=== PATIENT | female | born 1950 | race Caucasian/White ===

== ENCOUNTER → 2016-05-20 | Outpatient (CLI) | payer OTHER, MEDICARE ==
--- NOTE | 2016-05-20 15:31 | MA ---
Diagnostic Digital Mammogram With iCAD Analysis Clinical Indications: Evaluate palpable area in the upper-outer left breast detected by the patient's healthcare care provider. Technique: Standard cephalocaudal and mediolateral oblique projections were obtained. Additionally, o blique and craniocaudal spot compressions as well as a true lateral view of the left breast were perf ormed with attention to the region where the palpable abnormality was reported. This examination was processed by the iCAD computer-aided detection system. Comparison: October 2014, October 2013, April 2012, July 2010, March 2009, March 2008, October 2006. Breast density: Type C; Heterogeneously dense. Findings: CAD was reviewed. Prominent heterogeneous glandular pattern is stable bilaterally. No spic ulated masses, suspicious calcifications or other signs of malignancy are identified. There has been no significant change in the appearance of either breast. Impression: Palpable left breast region requires further evaluation. BI-RADS 0 Recommendation: Targeted left breast ultrasound which will be subsequently performed today. [facility] will send a result letter to the patient. A verbal report was given to the patient. Dense breast parenchyma diminishes mammographic sensitivity. Negative mammography should not preclude additional workup of a clinically suspicious finding. The patient's information is entered into a reminder system with a target due date for her next mammo gram.
--- NOTE | 2016-05-20 15:50 | US ---
Left Breast Ultrasound History: Evaluate palpable asymmetry identified by the patient's healthcare provider in the upper out er left breast. Technique: Longitudinal and transverse images were obtained utilizing a 15 MHz transducer. Study is interpreted in conjunction with diagnostic mammography performed earlier today. Findings: No discrete palpable abnormality is identified on my physical examination. Sonographic inte rrogation of the upper outer left breast demonstrates prominent fibroglandular elements. No solid or cystic mass is seen. Impression: Benign findings when considering mammographic and sonographic assessment, BI-RADS 2. Recommendation: Resume routine mammographic screening in one year as long as physical examination is negative.. A verbal report was given to the patient. [facility] will send a result letter to the patient.
== END ==
LOC: FIMAGING 14:32
PROVIDERS: ATTEND Internal Medicine Hematology & Oncology
DX: N63 Unspecified lump in breast (principal)
CPT/HCPCS: 76641; G0204

== ENCOUNTER → 2017-09-17 | Outpatient (CLI) | payer OTHER, MEDICARE ==
[~2017-09-17] MED LIST: LIDOCAINE 1% 300 MG/30 ML SDV ONE
--- NOTE | 2017-09-17 09:09 | PDRADPN ---
Radiology Procedure Note Date of Procedure: 09/17/17 Radiologist: Edilberto Archibald Anesthesia: Local (Specify) Pre-op Diagnosis: left submandibular nodule Post-op Diagnosis: same Indication: diagnosis Procedure: FNA under US guidance Finding(s): heterogeneous, very superficial nodule in left submandibular region with rim vascularity. Six 25G FNAs. Inf/Abcess present in the surg proc area at time of surgery?: No EBL: Minimal Complications: none Specimen(s): 6 FNAS submitted
== END ==
LOC: FIMAGING 07:42
PROVIDERS: ATTEND Internal Medicine Hematology & Oncology
PROC: 0C9 Mouth and Throat, Drainage (ICD-10-PCS; principal; 2017-09-17)
DX: M27.9 Disease of jaws, unspecified (principal)

== ENCOUNTER → 2018-09-06 | Outpatient (CLI) | payer OTHER, MEDICARE | LOC: BMCIMAGING 10:22 | PROVIDERS: ATTEND Emergency Medicine | DX: S52.502A Unspecified fracture of the lower end of left radius, initial encounter for closed fracture (principal); S52.612A Displaced fracture of left ulna styloid process, initial encounter for closed fracture ==

== ENCOUNTER → 2018-09-15 | Outpatient (CLI) | payer OTHER, MEDICARE | LOC: FIMAGING 11:34 | PROVIDERS: ATTEND Internal Medicine | DX: Z12.31 Encounter for screening mammogram for malignant neoplasm of breast (principal) ==

== ENCOUNTER → 2018-09-25 | Outpatient (CLI) | payer OTHER, MEDICARE | LOC: BMCIMAGING 12:45 ==

== ENCOUNTER → 2018-10-06 | Outpatient (CLI) | payer OTHER, MEDICARE | LOC: BMCIMAGING 13:39 ==